=== PATIENT | male | born 1990 | race Two or more races ===

== ENCOUNTER 2023-08-26 15:48 | Emergency (ER) | payer MEDICAID ==
[~2023-08-26] VITALS: Ht 167.6 cm; Wt 95.3 kg
[2023-08-26] MEDS ORDERED: ACETAMINOPHEN ES 500 MG TABLET PO ONE (16:30)
[2023-08-26] MEDS ORDERED: AMOX/CLAVULANATE 875 MG TABLET PO ONE (16:30)
[2023-08-26] MEDS ORDERED: AMOX-430 PO (18:32)
[2023-08-26] MEDS ORDERED: ACETAMINOPHEN ES 500 MG TABLET ONE (18:57)
[2023-08-26] MEDS ORDERED: AMOX/CLAVULANATE 875 MG TABLET ONE (18:57)
[2023-08-26 19:04] VITALS: BP 159/81; TEMP 97.8; O2SAT 99
== END 2023-08-26 19:05 | disposition home or self-care (01) ==
LOC: ER 16:24
DX: S00.81XA Abrasion of other part of head, initial encounter (principal); S51.832A Puncture wound without foreign body of left forearm, initial encounter; Y04.0XXA Assault by unarmed brawl or fight, initial encounter; W54.0XXA Bitten by dog, initial encounter; Y93.89 Activity, other specified; Y92.89 Other specified places as the place of occurrence of the external cause; Y99.8 Other external cause status
CPT/HCPCS: 70450-TC; 70486-TC; 71045-TC; 72125-TC